=== PATIENT | male | born 1985 | race Caucasian/White ===

== ENCOUNTER 2021-08-26 13:32 | Emergency (ER) | payer BC ==
[~2021-08-26] VITALS: Ht 177.8 cm; Wt 82.1 kg
[2021-08-26] MEDS ORDERED: PRED50TA PO (13:56)
[2021-08-26] MEDS ORDERED: GABA-536 PO (13:56)
[2021-08-26] MEDS ORDERED: DEXAMETHASONE SOD PHOSPHATE 4 MG INJ IM ONE (14:00)
--- NOTE | 2021-08-26 14:05 | NUR ---
PT SEEN AND EVALUATED BY DR ARITA. MEDICATION GIVEN PER MD ORDER.
[2021-08-26] MEDS ORDERED: DEXAMETHASONE SOD PHOSPHATE 10 MG INJ ONE (14:09)
== END 2021-08-26 14:25 | disposition home or self-care (01) ==
LOC: ER 13:32
DX: M51.17 Intervertebral disc disorders with radiculopathy, lumbosacral region (principal); G89.29 Other chronic pain
CPT/HCPCS: 96372; 99283; J1100; A4663